=== PATIENT | male | born 1940 | race Caucasian/White ===

== ENCOUNTER → 2020-12-02 06:32 | Outpatient (CLI) | payer MEDICARE, OTHER, SELFPAY ==
[2020-12-02] MEDS: Pentamidine Isethionate 300 MG, Water For Injection,Sterile 6 ML INHALATION (07:43)
== END ==
PROVIDERS: PCP Nurse Practitioner Family; Referring Provider Internal Medicine Hematology & Oncology; Visit Provider Internal Medicine Hematology & Oncology
DX: C85.90 Non-Hodgkin lymphoma, unspecified, unspecified site (principal); J84.9 Interstitial pulmonary disease, unspecified
CPT/HCPCS: 94642

== ENCOUNTER → 2025-02-02 | Outpatient (CLI) | payer MEDICARE, OTHER, SELFPAY ==
--- NOTE | 2025-02-02 15:09 | RAD_ITS ---
PROCEDURE: Left femur two views minimum 02/02/2025 REASON FOR EXAM: LEFT THIGH Patient rolled onto leg 2 months ago and it is still painful. Evaluate. TECHNIQUE: Procedure Code: RADFEM Modality: DX Procedure: FEMUR MIN 2 VIEWS Laterality: Left COMPARISON: None FINDINGS: Four views of the left femur were obtained. Bones: There is normal mineralization of the femur. There are no fractures or dislocations. Joints: Hip joint is well preserved. Knee joints are well preserved. Soft tissues: There is no suprapatellar bursa effusion. There is no soft tissue swelling. 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 RAD/Femur Min 2 Views IMPRESSION: Unremarkable left femur. 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 Reading Location: [id number]
== END | disposition home or self-care (01) ==
LOC: MTRAD 15:09
PROVIDERS: PCP Family Medicine; Referring Provider Family Medicine; Visit Provider Family Medicine
DX: S79.9 Unspecified injury of hip and thigh (principal)
CPT/HCPCS: 73552